=== PATIENT | female | born 1985 | race Hispanic/Latino ===

== ENCOUNTER → 2022-05-29 11:31 | Outpatient (CLI) | payer BC, SELFPAY ==
--- NOTE | ~2022-05-29 | MM_ITS ---
EXAMINATION: MM screening [facility] HISTORY: Screening mammogram. Baseline examination. TECHNIQUE: Craniocaudal and mediolateral oblique 3-D tomosynthesis images were obtained and synthetic 2-D images were generated. CAD analysis was submitted and interpreted. COMPARISON: No prior mammogram is available for comparison at this institution. BREAST PARENCHYMAL COMPOSITION: There are scattered areas of fibroglandular density. FINDINGS: There is no evidence of suspicious mass, calcification, or architectural distortion to sugg est malignancy in either breast. There has been no suspicious interval change. IMPRESSION: 1. No mammographic evidence of malignancy. 2. Recommend routine screening mammography in one year. BI-RADS Category 1: Negative Reviewed, dictated and finalized at location A. ADIER
== END ==
PROVIDERS: PCP Internal Medicine; Visit Provider Obstetrics & Gynecology
DX: Z12.31 Encounter for screening mammogram for malignant neoplasm of breast (principal)
CPT/HCPCS: 77063; 77067

== ENCOUNTER 2024-03-11 13:14 | Outpatient (CLI) | payer OTHER, BC, SELFPAY ==
--- NOTE | ~2024-03-11 | MM_ITS ---
EXAMINATION: MM screening [facility] HISTORY: Screening TECHNIQUE: Craniocaudal and mediolateral oblique 3-D tomosynthesis images were obtained and synthetic 2-D images were generated. CAD analysis was submitted and interpreted. COMPARISON: 05/29/2022 BREAST PARENCHYMAL COMPOSITION: Not dense: There are scattered areas of fibroglandular density. FINDINGS: There is no evidence of suspicious mass, calcification, or architectural distortion to sugg est malignancy in either breast. There has been no suspicious interval change. IMPRESSION: 1. No mammographic evidence of malignancy. 2. Recommend routine screening mammography in one year. BI-RADS Category 1: Negative Reviewed, dictated and finalized at location B.
== END 2024-03-11 13:15 ==
LOC: MICIMG 13:19
PROVIDERS: PCP Obstetrics & Gynecology; Visit Provider Obstetrics & Gynecology
DX: Z12.31 Encounter for screening mammogram for malignant neoplasm of breast (principal)
CPT/HCPCS: 77063; 77067

== ENCOUNTER 2025-03-18 14:49 | Outpatient (CLI) | payer OTHER, BC, SELFPAY ==
--- OUTSIDE RECORDS SUMMARY | 2025-01-31 08:45 | XMS_ITS | Continuity of Care Document ---
Author Organization [employer] Address [address] [place] [address] Phone Care Team Providers Care Personal Lines Advisor Name Role Phone Yue Rivers MD Unavailable Unavailable Allergies, Adverse Reactions, Alerts Substance Reaction Status Criticality No Known Allergies Active No Inform ation Medications Medication Instructions Dosage Effective Dates (start - stop) Status Comments ferrous sulfate 325 mg (65 mg iron) tablet,delayed release take 1 tablet by oral route 3 days per week - Active sertraline 50 mg tablet take 1 tablet by oral route every day 50 MG - Active hydroxyzine HCl 50 mg tablet take 1 tablet by oral route 2 times every day 50 MG - Active multivitamin tablet take 1 tablet by oral route every day with food - No Longer Active Procedures Procedure Date Pt inelig neg scrn depres PREVENTATIVE-EST: OFFICE [id number] BODY MASS INDEX DOCD SYST BP LT 130 MM HG DIAST BP < 80 MM HG Pt inelig neg scrn depres PREVENTATIVE-EST: BODY MASS INDEX DOCD SYST BP LT 130 MM HG DIAST BP < 80 MM HG OFFICE [id number] BODY MASS INDEX DOCD Justin-20-2023 SYST BP LT 130 MM HG DIAST BP < 80 MM HG REMOVAL IMPACTED CERUMEN REQUIRING INSTR UMENTATION REMOVAL IMPACTED CERUMEN REQUIRING INSTR UMENTATION Pt inelig neg scrn depres PREVENTATIVE-EST: BODY MASS INDEX DOCD SYST BP LT 130 MM HG DIAST BP < 80 MM HG OFFICE [id number] BODY MASS INDEX DOCD SYST BP LT 130 MM HG DIAST BP < 80 MM HG CBC, INC PLATELETS AND DIFFERENTIAL ROUTINE VENIPUNCTURE Pt inelig neg scrn depres PREVENTATIVE-NEW: BODY MASS INDEX DOCD SYST BP LT 130 MM HG DIAST BP < 80 MM HG Advance Directives Directive Yes / No Effective Date File Name Other Directive No N/A N/A WARNING:The information contained in this section is historical and is provided for information only and does not constitute a legal document or any assurance that the information is still accurate. Please verify the information with the he of the legal document before using it for clinical purposes. Encounters Encounter Description Practice Location Reason(s) For Visit Diagnoses Date Provider Providers Copied on Encounter PREVENTATIVE -EST: [facility] [address], [address], [place], [place], [id number] , tel: [phone] [facility] preventive exam (chief complaint) Body mass index [BMI] 23.0-23.9, adultRoutine medical examVitamin D deficiencyOther iron deficiency anemiasVitamin B12 deficiencyEsophageal stenosisHyperlipidem ia, unspecified hyperlipidemia type 5 Silvestre Turner. [address] [place], [place], [address] , [place]. tel:[phone] Referring Provider: Yue Renee, [address] [place], [address] . tel:[phone] [facility], [address], [place], [place], [address] , tel: [phone] [facility] No Information 4 Silvestre Turner. [address] [place], [place], [address] , [place]. tel: [phone] PREVENTATIVE -EST: 18-39 [facility], [address], [place], [place], [address] , [place] tel: [phone] [facility] preventive exam (chief complaint) Routine medical exam 4 Silvestre Turner. [address] [place], [place], [address] , [place]. tel: [phone] Referring Provider: Yue Renee, [address] [place], [address] . tel:[phone] [facility] [address], [place], [place], [address] , tel: [phone] [facility] Patient encounter (chief complaint) Bilateral impacted cerumenBilateral hearing loss, unspecified hearing loss type 3 Yuliana Kae. [address] [place], [place], [address] , [place]. tel: [phone] Referring Provider: Yue Renee, [address] [place], [address] . tel:[phone] PREVENTATIVE -EST: 18-39 [facility], [address], [place], [place], [address] , [place] tel: [phone] [facility] preventive exam (chief complaint) Routine medical examBody mass index [BMI] 21.0-21.9, adultBilateral impacted cerumenHair loss 3 Yuliana Kae. [address] [place], [place], [address] , [place]. tel: [phone] Referring Provider: Yue Renee, [address] [place], [address] . tel:[phone] OFFICE [id number][id number], [address], [place], [place], [address] , [place] tel: [phone] [place] Patient encounter (chief complaint) Palpable mass of lower backChronic bilateral low back pain without sciaticaOther chronic pain 2 Yuliana Pal[address] [place], [place], [address] , [place]. [phone] Referring Provider: Yue Renee, [address] [place], [address] . tel:[phone] PREVENTATIVE -NEW: 18-39 [facility], [address], [place], [place], [address] , [place] tel: [phone] [place] preventive exam (chief complaint) Body mass index [BMI] 21.0-21.9, adultRoutine medical examChronic low back pain without sciatica, unspecified back pain lateralityOther chronic painChronic pain of both kneesPain in left knee 2 Silvestre Turner. [address] [place], [place], [address] , [place]. tel:[phone] Referring Provider: Yue Renee, [address] [place], [address] . tel:[phone] Family History Family Member Type Diagnosis Age At Onset Paternal grandmother Problem Diabetes mellitus Father Problem Alcoholism Mother Problem Cancer, breast Mother Problem Migraine headaches Father Problem Allergies Maternal grandmother Problem Depression Maternal grandfather Problem Stroke Brother Problem Asthma Paternal grandfather Problem Alcoholism Immunizations Vaccine Date Status Comments Tdap administered Source: Source Unspecified Moderna COVID Vaccine, 25 mcg/0.25 mL dosage, 6mos-5yrs administered Note: [facility] ; S ource: Public Agency Moderna COVID Vaccine, 25 mcg/0.25 mL dosage, 6mos-5yrs administered Note: [facility] ; Source: Public Agency Payers Payer name Insurance type Covered republican ID Authoraarona fran(s) [facility] [employer] [place] [id number] [place] [id number] Social History Type Description Quantity Date Captured Comments Alcohol Use Details beer & wine Caffeine Use Details Unknown Tobacco Use Status Current non-smoker Smoking Status Never smoker Sex Female Sexual Orientation Bisexual Gender Identity Female Vital Signs Date / Time: Height Weight BMI Pulse Rate Blood Pressure Temperature Respiratory Rate Body Surface Area Head Circumference Head Circ. Percentile Wt./Fuentes. Percentile BMI percentile Pulse Ox Inhaled Ox 1:50 PM 63.25 in 59.965 kg (132.20 lbs) 23.2 3 kg/m eter (2) 85 /min 104/66 mm[Hg] Chief Complaint And Reason For Visit From encounter dated '01/31/2025 13:45'. preventive exam (chief complaint). Description: Currently : no. The patient states using none for control. Diet healthy.The patient states Patient's exercise level is moderate and frequency is 3-4 times/week. The patient does drink alcohol. Additional information: Routine PE done todayTrying to do some regular exercisePt. seen by GI and had labs done that showed iron deficieny andemia and vitamin B12 deficiency. Has esophageal stenosis and had dilation done by GI and no longer having any difficulty swallowing.Has truck farmer that she sees for pap smears UTD.STates she has mammogram scheduled.Has hyperlipidemia noted on prior labs trying to control with diet and exercise.Has vitamin D deficiency noted on labs. . Reason For Referral Reason For Referral No Information Plan Of Treatment Date Type Action Status Goal Dietary manageme nt education, guidance, and counseling completed Goal Dietary manageme nt education, guidance, and counseling completed Goal Tobacco cessation counseling completed Goal Dietary manageme nt education, guidance, and counseling completed Referral Ordered: Physical Therapy [facility] Physical Therapy [facility] (related to Chronic bilateral low back pain without sciatica) ordered Referral Referred To: Physical Therapy [address] [place] [address], [phone] Ordered: Referrals: Physical Therapy. Location: [facility]. Evaluation/diagnostic/treatment - Level 3 ordered Referral Ordered: Abdominal ultrasound, limited ordered Referral Ordered: Limited ultrasound of soft tissue of left lower extremity ordered Referral Ordered: Ultrasound of soft tissue of back ordered Appointment Tarah Paulson Appointment Tarah Paulson History Of Present Illness Encounter Date Complaint History Of Prese nt Illness preventive exam Currently pregna nt: no. The patient states using none for control. Diet healthy.The patient states Patient's exercise level is moderate and frequency is 3-4 times/week. The patient does drink alcohol. Additional information: Routine PE done todayTrying to do some regular exercisePt. seen by GI and had labs done that showed iron deficieny andemia and vitamin B12 deficiency. Has esophageal stenosis and had dilation done by GI and no longer having any difficulty swallowing.Has truck farmer that she sees for pap smears UTD.STates she has mammogram scheduled.Has hyperlipidemia noted on prior labs trying to control with diet and exercise.Has vitamin D deficiency noted on labs. . preventive exam Currently pregna nt: no. The patient states using none for control. Diet healthy.The patient states Patient's exercise level is moderate and frequency is 3-4 times/week. The patient does not use tobacco. The patient does drink alcohol. Additional information: Routine PE done todayNo new concernsTrying to exercise regularlyHad [facility]Brought in biometric screen done through 's insurance with Total chol 201 and LDL 132 and HDL 54. GLucose 77 and A1c 5.6%.Sees ob/gyn physician for pap smears UTD per ptStates she has mammogram scheduled. Patient encounter Chief complain t: ear irrigation.37 year old female who presents for ear irrigation. She was evaluated in our office last week and noted to have bilateral cerumen impaction. She has been using Debrox drops and has gotten some ear wax out in the past week. She has no ear pain, drainage. preventive exam Currently pregna nt: no.Patient is not contemplating . The patient states she uses none for control. Last LMP was 12/29/2022. Her menses is regular. Negative for: breast discharge, breast lump(s) and breast pain. Positive for: breast self exam. Diet healthy. She reports getting calcium supplement daily. She reports taking a vitamin D supplement daily.The patient states her exercise level is moderate and frequency is 3-4 times/week. The patient does use tobacco. She does drink alcohol. Additional information: Pap - follows with OBGYNCOVID - needs bivalentTdap - UTD per patientShe had labs done through insurance one month ago. Reviewed labs and will try to get copies for chart.Patient reports missing a small patch of hair in her left posterior scalp that she noticed 3 weeks ago. She has no pain, rash, itching. She had COVID in September. She is not under any stress currently. Patient reports feeling like she has a lot of ear wax. Feels like water is in hears and has throat and ear itching. She has ear wax on outside of ear. She has no muffled hearing. . Patient encounter Chief complain t: low back pain.36 year old female who presents with low back pain that has been present for years. She reports this is present about 4 times a week. She had no known injury or trauma. She does not take any medications for this. She has noticed a few bumps to lower back last week. They are not painful. She has not had any recent illness. Her noticed these bumps a few months ago when massaging area but patient did not feel them until more recently. The masses are not in the area of her typical back pain. She has no loss of bowel or bladder control. She has occasional radicular pain down left leg when back pain is at its worst. preventive exam Pertinent negati ves include anxiety and depression. The patient does use tobacco. She does drink alcohol. Additional information: Routine PE done today.Recently moved to this area in the past year.Has been in [place] for past 7 years previously lived in [place] where she was born and raised.Has her PhD in Communications from [employer] currently not working. Tries to do some regular exercise.Has appt. with truck farmer in the next month for pap smear.Has chronic low back pain and chronic bilateral knee pain. States she has seen multiple doctors for this since childhood and no abnormality found. Not interested in PT.States she has hypermobility of joints and wonders if she could have a type of Kaylee-Danlos syndrome. . Functional Status Date Functional Assessmen t No Information Instructions Date Instruction Additional Infor alyssa work on low fat diet and exercise and continue close monitoring Related to Hyperlipidemia, unspecified hyperlipidemia type follow up with GI if you develop any difficulty swallowing Related to Esophageal stenosis Start ferrous sulfat e 325mg tab- 1 tab 3 days per week- rx sent to pharmcheck labs in 3 months Related to Other iron deficiency anemias Start over the count er vitamin B12- 1,000 micrograms dailycheck labs in 3 months Related to Vitamin B12 deficiency Start over the count er vitamin D3- 2,000 units once dailycheck vitamin D level in 3 months Related to Vitamin D deficiency Continue to try to d o some regular exerciseContinue regular pap smears with your gynecologistGet your mammogram as scheduledFollow up in 1 year- bring in results of fasting labs to your appointment Related to Routine medical exam Exercise Dietary management e ducation, guidance, and counseling Related to Body mass index (BMI) 23.0-23.9, adult Try to do some regul ar exerciseKeep your appointment with the truck farmer as scheduled next monthContinue regular pap smears with your gynecologistGet your mammogram as scheduledFollow up in 1 year- fasting labs prior Related to Routine medical exam Ear wax completely r emoved from ear canal with no complications Related to Bilateral hearing loss, unspecified hearing loss type Ear wax completely r emoved from ear canal with no complications Related to Bilateral impacted cerumen Schedule ear irrigat ion in the next few weeksuse Debrox drops for at least 4 days prior to appointment Related to Bilateral impacted cerumen Monitor and let us k now if this is worsening Related to Hair loss Try to do some regul ar exercisePlease send your lab results to our office. You can send them to [email or web address] your appointment with the truck farmer as scheduled next monthRecommend a flu shot in the fallFollow up in 1 year- fasting labs prior Get at least 1000mg of calcium daily- can get calcium from dietary sources in addition to calcium supplement. Each dairy serving such as an 8 oz. glass of milk or a yogurt or serving of cheese contains 200mg of calcium per serving. If you take a calcium supplement, make sure it has vitamin D with it Related to Routine medical exam Dietary management e ducation, guidance, and counseling Related to Body mass index (BMI) 21.0-21.9, adult We will refer you to physical therapy today Related to Chronic bilateral low back pain without sciatica We will order an ultrasound of a kyle Related to Palpable mass of lower back We will refer you to physical therapy today Related to Other chronic pain refer to orthopedicc all back if you change your mind about a referral to PT Related to Pain in left knee Try to do some regul ar exerciseKeep your appointment with the truck farmer as scheduled next monthPlease get a copy of immunization record and send that in to our officeRecommend a flu shot in the fallFollow up in 1 year- fasting labs prior Related to Routine medical exam refer to orthopedicc all back if you change your mind about a referral to PT Related to Chronic low back pain without sciatica, unspecified back pain laterality refer to orthopedicc all back if you change your mind about a referral to PT Related to Other chronic pain refer to orthopedicc all back if you change your mind about a referral to PT Related to Chronic pain of both knees Dietary management e ducation, guidance, and counseling Related to Body mass index (BMI) 21.0-21.9, adult Exercise Assessments Type Assessment Date assessment Body mass index (BMI) 23.0-23.9, adult assessment Routine medical exam assessment Vitamin D deficiency assessment Other iron deficiency anemias assessment Vitamin B12 deficiency assessment Esophageal stenosis assessment Hyperlipidemia, unspecified hype rlipidemia type Mental Status Date Cognitive Assessment Orientation - [place] ed to time, place, person, situation. Patient Care Teams Name Effective Dates (start - stop) Status Members No Information
--- NOTE | ~2025-03-18 | MM_ITS ---
EXAMINATION: MM screening [facility] BI w robina HISTORY: Screening TECHNIQUE: Craniocaudal and mediolateral oblique 3-D tomosynthesis images were obtained and synthetic 2-D images were generated. CAD analysis was submitted and interpreted. COMPARISON: Mammograms from 03/11/2024 and 05/29/2022 BREAST PARENCHYMAL COMPOSITION: There are scattered areas of fibroglandular density. FINDINGS: There is no evidence of suspicious mass, calcification, or architectural distortion to suggest malignancy. There has been no suspicious interval change. IMPRESSION: 1. No mammographic evidence of malignancy. Recommend routine screening mammography in one year. BI-RADS Category 2: Benign finding(s) Reviewed, dictated and finalized at location Q. IMPRESSION: 1. No mammographic evidence of malignancy. Recommend routine screening mammogra phy in one year. BI-RADS Category 2: Benign finding(s)
--- OUTSIDE RECORDS SUMMARY | 2025-03-18 14:52 | XMS_ITS | Clinical Summary ---
Author Organization [employer] [facility] Address [address] [place] [address] Care Team Providers Care Cloth Framer Name Role Phone Yue Rivers MD Primary Care Provider + Allergies No known active allergies Medications hydrOXYzine (ATARAX) 25 mg tablet Take 1 tablet (25 mg total) by mouth every 8 (eight) hours as needed for anxiety 4 Active sertraline (ZOLOFT) 50 mg tabletIndicatio ns:Anxiety with Depression Take 1 tablet (50 mg total) by mouth nightly 4 Active melatonin 5 mg tabletIndicatio ns:sleep Take 1 tablet (5 mg total) by mouth nightly Active ibuprofen 200 mg tab/cap Take 2 tablet/capsule (400 mg total) by mouth every 6 (six) hours as needed for pain Active Vienva 0.1-20 mg-mcg per tablet 4 Active omeprazole (PriLOSEC) 20 mg capsule TAKE 2 CAPSULES(40 MG) BY MOUTH DAILY BEFORE BREAKFAST 30 capsule 6 5 Active Active Problems Problem Noted Date Diagnosed Date 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 Monthly or less 09/02/2024 Q2: How many drinks containi ng alcohol do you have on a typical day when you are drinking? 1 or 2 09/02/2024 Q3: How often do you have si x or more drinks on one occasion? Never 09/02/2024 Personal Safety Answer Date Recorded Have you ever been in or are you currently in a harmful physical or emotional relationship or is someone making you feel afraid or unsafe? Denies 09/02/2024 Comments No Sex and Gender Information Value Date Recorded Sex Assigned at Not on file Legal Sex Female 2:19 PM CDT Gender Identity Not on file Sexual Orientation Not on file Obstetrics History Last Filed Vital Signs Vital Sign Reading Time Taken Comments Blood Pressure 98/50 09/02/2024 9:00 AM [employer] Pulse 79 09/02/2024 9:00 AM [employer] Temperature 36.4 C (97.5 F) 09/02/2024 8:30 AM [employer] Respiratory Rate 20 09/02/2024 9:00 AM [employer] Oxygen Saturation 100% 09/02/2024 9:00 AM [employer] Inhaled Oxygen Concentration - - Weight 59 kg (130 lb) 09/02/2024 7:06 AM [employer] Height 162.6 cm (5' 4) 09/02/2024 7:06 AM [employer] Body Mass Index 22.31 09/02/2024 7:06 AM [employer] [employer] Plan of Treatment Health Maintenance Due Date Last Done Comments Cervical Cancer Screening 1986 Depression Screening 1986 Hepatitis C Screening 1986 Varicella Vaccines (1 of 2 - 13+ 2-dose series) 11/27/1999 Hepatitis B Screening 2004 Regular Well Visit/Exam 18-64 2004 HPV Vaccines (1 - 3-dose SCD M series) 2013 Influenza Vaccine (#1) 2025 DTaP/Tdap/Td Vaccine (2 - Td or Tdap) 02/18/2033 02/18/2023 Pneumococcal vaccine <65 Aged Out No longer eligible based on patient's age to complete this topic Insurance [facility] STUDENT RESOURCES [facility] HMO/PPO Address: [address] [place] [address] [facility] STUDENT RESOURCES CHOICE PLUS [facility] HMO/PPO Address: [address] [place] [address] [facility] [employer]ENT RES[employer] CHOICE PLUS [facility] HMO/PPO Address: [address] [place] [address] Advance Directives For more information, please contact: [phone] * Full Code (Latest Code Status on File) Date Activated Date Inactivated Comments 09/02/2024 7:02 AM 09/02/2024 1:44 PM Care Teams Cloth Framer Relationship Specialty Start Date End Date Yue Rivers MD PCP - General Internal Medicine 08/27/24
--- OUTSIDE RECORDS SUMMARY | 2025-03-18 14:52 | XMS_ITS | Clinical Summary ---
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 Gender Identity Not on file Sexual Orientation Not on file Plan of Treatment Health Maintenance Due Date Last Done Comments Cervical Cancer Screening Pa p Smear (Age 30 to 64) Every 3 Years 1986 Annual Physical 1989 Hepatitis C 2004 DTaP, Tdap and Td Vaccines ( 1 - Tdap) 2005 Hepatitis B Vaccines (1 of 3 - 19+ 3-dose series) 2005 HPV Vaccines (1 - 3-dose SCD M series) 2013 Cervical Cancer Screening Pa p with HPV Testing (Age 30 to 64) Every 5 Years 2016 Cervical Cancer Screening wi th HPV 2016 COVID-19 Vaccine ( - 2023-2 5 season) 2024 10/18/2020, 09/12/2020 Meningococcal B Vaccine Aged Out No l onger eligible based on patient's age to complete this topic Meningococcal Vaccine Aged Out No hamlet dejuan eligible based on patient's age to complete this topic Pneumococcal Vaccine: Pediatrics (0 to 5 Years) and At-Risk Patients (6 to 49 Years) Aged Out No longer eligible b ased on patient's age to complete this topic RSV Immunizations Under 20 Months Aged Out No longer eligible b ased on patient's age to complete this topic Insurance [facility] Care Teams Fabric Cutter Relationship Specialty Start Date End Date None, Provider, MD PCP - General UNKNOWN PHYSICIAN SPECIALTY 07/08/22
== END 2025-03-18 14:50 | disposition home or self-care (01) ==
LOC: CHSIMG 14:50
PROVIDERS: PCP Internal Medicine; Visit Provider Obstetrics & Gynecology
DX: Z12.31 Encounter for screening mammogram for malignant neoplasm of breast (principal)
CPT/HCPCS: 77063; 77067